=== PATIENT | male | born 2000 | race Caucasian/White ===

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

== ENCOUNTER 2021-01-06 01:52 | Inpatient (IN) ==
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
[2021-01-06 02:22] LABS: Appearance Urine Clear (Clear); Bilirubin Urine Negative (Negative); Blood Urine Negative (Negative); Color Urine Yellow; Glucose Urine UA Negative (Negative); Ketones Urine Negative (Negative); Leukocyte Esterase Urine Negative (Negative); Nitrite Urine Negative (Negative); Protein Urine Negative (Negative); Specific Gravity Urine 1.004 (1.000-1.030); Urobilinogen Urine Negative (Negative); pH Urine 6.5 (4.5-7.5)
[2021-01-06 02:30] LABS: Basophils # (auto) 0.03 K/uL (0-0.2); Basophils % (auto) 0.4 %; Eosinophils # (auto) 0.03 K/uL (0-0.5); Eosinophils % (auto) 0.4 %; Hematocrit (blood only) 44.2 % (42-52); Hemoglobin 16.1 g/dL (14.0-18.0); Immature Granulocytes # (auto) 0.03 K/uL (0.00-0.02); Immature Granulocytes % (auto) 0.4 %; Lymphocytes # (auto) 2.63 K/uL (1.2-3.4); Lymphocytes % (auto) 32.9 %; Mean Corpuscular Hemoglobin 31.5 pg (25-34); Mean Corpuscular Hgb Conc 36.4 g/dL (32-36); Mean Corpuscular Volume 86.5 fL (80-100); Mean Platelet Volume 9.1 fL (7.4-10.4); Monocytes # (auto) 0.57 K/uL (0.11-0.59); Monocytes % (auto) 7.1 %; Neutrophils % (auto) 58.8 %; Platelet Count 291 K/uL (130-400); RDW Coefficient of Variation 13.1 % (11.5-14.5); RDW Standard Deviation 41.7 fL (36.4-46.3); Red Blood Count 5.11 M/uL (4.7-6.1); White Blood Count 7.99 K/uL (4.8-10.8)
[2021-01-06 02:42] LABS: Amphetamines+Metham, Urine Neg (Neg); Barbiturates, Urine Neg (Neg); Benzodiazepine, Urine Neg (Neg); Cocaine, Urine Neg (Neg); MDMA (Ecstacy), Urine Neg (Neg); Methadone, Urine Neg (Neg); Opiate, Urine Neg (Neg); Phencyclidine, Urine Neg (Neg)
[2021-01-06 02:47] LABS: Albumin Level 4.2 gm/dl (3.4-5.0); BUN Creatinine Ratio 5.5 (10-20); Calcium 8.8 mg/dl (8.5-10.1); Creatinine Clr Calc Pharmacy 154.3 ml/min; Potassium 3.9 mmol/L (3.5-5.1)
[2021-01-06 02:53] LABS: Acetaminophen < 2 ug/ml (10-30); Salicylate < 1.7 mg/dl (2.8-20)
[2021-01-06 02:58] LABS: Albumin Globulin Ratio 1.1 (0.9-2); Bilirubin,Total 0.4 mg/dl (0.2-1); Globulin 3.7 gm/dl (2.5-4.0); Thyroid Stimulating Hormone 2.16 uIu/ml (0.300-4.500); Total Protein 7.9 gm/dl (6.4-8.2)
--- NOTE | 2021-01-06 07:53 | Emergency Department Note ---
ED Visit Note Patient reportedly had a significant other that broke up with the patient. Patient has been depressed with suicidal ideation and wants inpatient treatment. Patient was initially intoxicated but now clinically sober. Patient is pending [facility] evaluation. No active plan at this time. The patient is a voluntary 201. Patient was accepted to [facility]. The patient was admitted for voluntary inpatient psychiatric treatment. . : Alcohol intoxication Qualifiers: Complication of substance-induced condition: uncomplicated Qualified Code(s): F10.920 - Alcohol use, unspecified with intoxication, uncomplicated
[2021-01-06] MEDS ORDERED: hydrOXYzine HCl 25 MG TAB PO PRN ×2 (08:40)
[2021-01-06] MEDS ORDERED: NICOTINE POLACRILEX 2 MG GUM MT PRN (08:40)
[2021-01-06] MEDS ORDERED: MAGNESIUM HYDROXIDE SUSP 30 ML UDC PO PRN (08:40)
[2021-01-06] MEDS ORDERED: SODIUM CHLORIDE 0.65% NA SOLN 45 ML (OCEAN) PRN (08:40)
[2021-01-06] MEDS ORDERED: ALUMINUM/MAGNESIUM SUSP 30 ML UDC PO PRN (08:40)
[2021-01-06] MEDS ORDERED: BISMUTH SUBSALICYLATE LIQD 236 ML PO PRN (08:40)
[2021-01-06] MEDS ORDERED: ACETAMINOPHEN 325 MG TAB PO PRN (08:40)
[2021-01-06] MEDS ORDERED: buPROPion XL 150 MG TABCR PO SCH (14:15)
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
[2021-01-06] MEDS ORDERED: buPROPion XL 300 MG TABCR PO ONE (14:45)
[2021-01-06] MEDS: NICOTINE 14 MG/24 HR PATCH TD SCH (15:24)
[2021-01-06] MEDS: ARIPiprazole 15 MG TAB PO SCH (15:25)
[2021-01-06] MEDS: busPIRone 5 MG TAB PO SCH (20:18)
[2021-01-07] MEDS: NICOTINE 14 MG/24 HR PATCH TD SCH (09:08)
[2021-01-07] MEDS: ARIPiprazole 15 MG TAB PO SCH (09:09)
[2021-01-07] MEDS: buPROPion XL 300 MG TABCR PO SCH (09:10)
[2021-01-07] MEDS: busPIRone 5 MG TAB PO SCH ×3 (09:10→20:32)
--- NOTE | 2021-01-07 13:05 | Psychiatric Progress Note ---
Date of Service January 07, 2021 Impression / Recommendations Impression This is a 20-year-old male who presented with acute worsening of depression with suicidal ideation and plan to take father' medication. Patient is considered high risk as his brother by completed suicide in May and becomes disinhibited under the influence of ETOH. (1) Depression with suicidal ideation: 01/07/21--continue current medication and treatment plan as per Dr. Gonzalez (in italics). Risks/benefits/alternatives reviewed re: his current medications. Discussion included but was not limited to need for metabolic and TD monitoring with Abilify. He related he gets labs "every 3 months" and declines repeat fasting glu and cholesterol panel here. Will attempt to retrieve past labs for chart. Discussed FDA black box warnings for suicidality with antidepressants and mood stabilizers given his age <25. Reviewed risks fo serotonin syndrome given polypharmacy and higher end dosing of Buspar. He voiced good understanding of the discussion and denied side effects or hx of marleni. Reviewed disinhibiting effects of ETOh with his medication and he agrees to abstain from ETOH as although he doesn't have a regular intake problem, he can drink impulsively when triggered by upset, consistent with his personality do dx. The [facility] inpatient mental [facility] unit) on every 15 minute checks (behavioral with suicide precautions for safety. The patient will participate in group, recreational, and milieu therapies and will be offered additional individual and family sessions as clinically appropriate. 01/06/2021we will increase patient's Wellbutrin to 300 mg p.o. every morning starting tomorrow morning. We will continue his Abilify at 7.5 mg. We will continue his BuSpar for now, although an SSRI should be considered. Protective Factors Assessment Employed: Yes ([employer] (just started)) Interval History Identifying Information 20 yo male admit on 01/06 for SI, hx of BPD, voluntary hospitalization. Chief Complaint "I feel like 1 million percent better". Review of Systems Sleep Information Total Hours of Sleep: 8 Meal Information Percent Meal Consumed - Breakfast: 85 Percent Meal Consumed - Lunch: 100 Percent Meal Consumed - Dinner: 90 Subjective Subjective Patient was seen & assessed and interval progress reviewed with treatment team. Has since reconciled with trenton, mother of his 2 month old child. States that although he is benefiting form "a break" that he doesn't want to be here too much longer given separation from baby, her needing assistance, and plan to start a job later in the week (future focussed). States he is tolerating medication changes. Physical Exam Psychiatric Orientation: alert and oriented x 3 Apperance: appropriately dressed Eye Contact: good eye contact Motor Behavior: no abnormal motor movements Speech: normal rate/rhythm/volume of speech pleasant Mood: + depressed mood and + anxious mood Thought Process: linear/logical thought process Thought Content: reality based without delusions Suicidal Thoughts: denies suicidal thoughts and denies suicidal plan Homicidal Thoughts: denies homicidal thoughts Hallucinations: no auditory hallucinations and no visual hallucinations Cognition: recent memory grossly intact Estimated Intelligence: average estimated intelligence Insight: good insight Judgement: + fair judgement Vital Signs (Past 24 Hours) Last Vital Signs Temp 36.6 C 01/07/21 06:56 Pulse 99 H 01/07/21 06:56 Resp 18 01/07/21 06:56 BP 119/67 01/07/21 06:56 Pulse Ox 96 01/06/21 09:37 Results & Data ([facility]) Current Inpatient Medications Current Inpatient Medications: Current Inpatient Medications Acetaminophen (Acetaminophen 325 Mg Tab) 650 mg PO Q4H PRN PRN Reason: Headache or Minor Fever Stop: 02/05/21 08:39 Last Admin: 01/06/21 14:06 Dose: 650 mg Documented by: Al Hydrox/Mg Hydrox/Simethicone (Aluminum/Magnesium Susp 30 Ml Udc) 30 ml PO Q4H PRN PRN Reason: GI Upset Stop: 02/05/21 08:39 Aripiprazole (Aripiprazole 15 Mg Tab) 7.5 mg PO DAILY [facility] Stop: 02/05/21 14:14 Last Admin: 01/07/21 09:09 Dose: 7.5 mg Documented by: Bismuth Subsalicylate (Bismuth Subsalicylate Liqd 236 Ml) 15 ml PO PRN PRN PRN Reason: Loose Stool Stop: 02/05/21 08:39 Bupropion HCl (Bupropion Xl 300 Mg Tabcr) 300 mg PO QAM [facility] Stop: 02/06/21 08:59 Last Admin: 01/07/21 09:10 Dose: 300 mg Documented by: Buspirone HCl (Buspirone 5 Mg Tab) 20 mg PO TID [facility] Stop: 02/05/21 20:59 Last Admin: 01/07/21 09:10 Dose: 20 mg Documented by: Hydroxyzine HCl (Hydroxyzine Hcl 25 Mg Tab) 50 mg PO HSZ PRN PRN Reason: Insomnia Stop: 02/05/21 08:39 Hydroxyzine HCl (Hydroxyzine Hcl 25 Mg Tab) 25 mg PO Q4H PRN PRN Reason: Anxiety Stop: 02/05/21 08:39 Magnesium Hydroxide (Magnesium Hydroxide Susp 30 Ml Udc) 30 ml PO DAILY PRN PRN Reason: Constipation Stop: 02/05/21 08:39 Miscellaneous (Remove Nicoderm Patch) 1 ea N/A DAILY@0859 [facility] Stop: 02/05/21 08:58 Last Admin: 01/07/21 09:08 Dose: 1 ea Documented by: Nicotine (Nicotine 14 Mg/24 Hr Patch) 14 mg TD QAM [facility] Stop: 02/05/21 08:59 Last Admin: 01/07/21 09:08 Dose: 14 mg Documented by: Nicotine Polacrilex (Nicotine Polacrilex 2 Mg Gum) 1 piece MT PRN PRN PRN Reason: Nicotine Withdrawal Stop: 02/05/21 08:39 Sodium Chloride (Sodium Chloride 0.65% Na Soln 45 Ml ([place])) 1 - 2 sprays NA PRN PRN PRN Reason: Nasal Dryness/Congestion Stop: 02/05/21 08:39 Mental Health & Subst Abuse Tx Psychiatrist Name of Psychiatrist: [facility] [id number] [facility] [place] [id number] The[place] Name of Therapist: [facility] [place] Therapist's Therapy Appointment Comment: [id number] [facility] [place] [id number] Chainsaw Mechanic Name of Chainsaw Mechanic: None Post Discharge Appointments Primary Care Physician Name Of Family Doctor: None
[2021-01-08] MEDS: buPROPion XL 300 MG TABCR PO SCH (08:17)
[2021-01-08] MEDS: ARIPiprazole 15 MG TAB PO SCH (08:17)
[2021-01-08] MEDS: busPIRone 5 MG TAB PO SCH ×2 (08:18→14:12)
[2021-01-08] MEDS: NICOTINE 14 MG/24 HR PATCH TD SCH (08:21)
--- NOTE | 2021-01-08 11:46 | Discharge Summary ---
Date of Service January 08, 2021 History of Present Illness As per admitting psychiatrist Dr. Gonzalez: HPI as per psychiatric case management "Patient brought to ED by his father for mental health evaluation. Patient stated he has been drinking alcohol tonight and got into a fight with his fiance. Patient stated he is having thoughts of suicide with a plan. Patient stated he attempted suicide in the past. Patient reports inpatient treatment at [facility] 2 years ago. Family history of suicide - younger brother. Patient is seeking inpatient mental health treatment. Met with patient bedside to complete mental health evaluation. Patient stated he is diagnosed with Borderline Personality, depression, and anxiety. Patient stated he is prescribed medication by Dr. Walden at [facility] in [place]. Patient stated he takes his medication as prescribed. Patient stated he lives with his fiance and 2 month old daughter. Patient stated he has a 2 year old daughter to a previous relationship. Patient stated he got into a verbal argument with his fiance last night. Patient reports suicidal ideations with plan to get fathers pills and overdose on them. Patient denies previous suicide attempts. Patient stated he does see a therapist regularly. Patient stated he was inpatient at [facility] approx. 2 years ago. Patient denies HI or aggression. Patient denies SIB. Patient denies hallucinations, paranoia, or delusional thinking. Patient stated he feels sad most of the time and has increased anxiety recently. Patient denies medical issues. Patient stated he drinks alcohol approx. 1 time a week. Patient denies substance use. Patient denies any legal issues. Patient started a new job at [employer] recently and stated it is going well. Ferdinand is seeking inpatient mental health treatment." Upon evaluation this afternoon, patient endorses the above information is accurate. Patient states that his problems stem back from his childhood, where he grew up with a mother who suffered from bipolar disorder and was frequently hospitalized. Patient states that these troubles continued into adolescence due to bullying as well as poor self-esteem. Patient was in a relationship that was unsuccessful but he does have a 2 year daughter which he has visitation rights to. Additionally patient has a 2-month-old daughter with his fiance in 4 months. He cites stress in the home both financial and interpersonal as stressors which contributed to his current presentation. Patient endorses mood swings with chronic passive suicidal ideation, but is reporting that in the recent days his suicidal ideation has become more active with plans to overdose. Patient denies any hallucinations or paranoia or delusions. He does acknowledge alcohol and marijuana use which are excessive and were used as coping mechanisms. Patient stated that he had recently has been sober for approximately 2 months time. Patient endorses a mental health treatment history that stretches back to his childhood. He stated that he was put on medications for his behavior as a young child but is unsure as to what medications those were. He stated that as he grew into adolescence his problems turned towards more depression. He stated that he is currently taking Abilify, Wellbutrin, and BuSpar. He feels as if all these medications are helping him, but is most interested in increasing his Wellbutrin. Physical Exam Mental Examination See admission H&P and DOD summary. Vital Signs (Past 24 Hours) Last Vital Signs Temp 36.6 C 01/08/21 06:00 Pulse 93 H 01/08/21 06:31 Resp 16 01/08/21 06:00 BP 137/82 01/08/21 06:31 Pulse Ox 96 01/06/21 09:37 Principal Diagnosis major depressive disorder, recurrent, moderate Psychiatric Data See daily stay summary. In short, safety was maintained and the patient was cooperative with care. Medication changes included increase in Wellbutrin and they tolerated this well. A family session was held with his fiance prior to discharge and safety plan was completed prior to discharge. In addition, as suicidal plan included taking father's medication, treatment team confirmed that father aware/secured his meds and that patient has no access to guns at either residence. Father accidentally brought a rope to the unit with the patient's personal belongings and agreed it can be disposed of here. Day of Discharge Assessment Today the patient voices readiness for discharge. They note improvement in mood and deny thoughts to harm self or others. Thoughts remain organized and they are improved from admission. There is no evidence of psychosis. They agree to take mediations as prescribed and keep follow-up appointments. They voice understanding that Etoh may have a disinhibiting or combined effect with psychiatric medications and agree to abstain from Etoh. They are stable for discharge to outpatient level of care. Transition of Care Transition Of Care Record: was reviewed with the patient Advance Directives Advance Directives Information Provided: Yes Advance Directives: No Mental Health Advance Directive: No Living Will: No Power of Replanting Machine Crewman: No Advance Directives Reason:: Declines as Mental Health Visit. Risk Factors Assessment Male: Yes : Yes Do You Have Access To A Gun?: No Substance Use Disorders: No Previous Psychiatric Hospitalization: Yes Protective Factors Assessment Responsible for Young Children: Yes Employed: Yes ([employer] (just started)) Supportive Family: Yes Tobacco Cessation at Discharge Tobacco Cessation Medication Prescribed at Discharge: Offered & Pt Refused Total Time Total Time Spent: Greater Than 30 Minutes Total Time Includes: Examination of the patient, Discharge Planning and Medication Reconciliation Discharge Data Lab Results 01/06/21 01/06/21 01/06/21 02:03 02:03 02:19 WBC 7.99 RBC 5.11 Hgb 16.1 Hct 44.2 MCV 86.5 MCH 31.5 MCHC 36.4 H RDW Std Deviation 41.7 RDW Coeff of Maurisio 13.1 Plt Count 291 MPV 9.1 Immature Gran % (Auto) 0.4 Neut % (Auto) 58.8 Lymph % (Auto) 32.9 [place] % (Auto) 7.1 Eos % (Auto) 0.4 Baso % (Auto) 0.4 Neut # (Auto) 4.70 Lymph # (Auto) 2.63 [place] # (Auto) 0.57 Eos # (Auto) 0.03 Baso # (Auto) 0.03 Immature Gran # (Auto) 0.03 H Sodium Potassium Chloride Carbon Dioxide Anion Gap BUN Creatinine Est Cr Clr Drug Dosing Est GFR ( Amer) Est GFR (Non-Af Amer) BUN/Creatinine Ratio Glucose Calcium Total Bilirubin AST ALT Alkaline Phosphatase Total Protein Albumin Globulin Albumin/Globulin Ratio TSH Urine Color Yellow Urine Appearance Clear Urine pH 6.5 Ur Specific [place] 1.004 Urine Protein Negative Urine Glucose (UA) Negative Urine Ketones Negative Urine Blood Negative Urine Nitrite Negative Urine Bilirubin Negative Urine Urobilinogen Negative Ur Leukocyte Esterase Negative Salicylates Urine Opiates Screen Neg Ur Methadone, Qual Neg Acetaminophen Urine Barbiturates Neg Ur Phencyclidine (PCP) Neg U Amphetamin/Meth Scrn Neg MDMA (Ecstasy) Screen Neg U Benzodiazepines Scrn Neg Ur Cocaine Metabolite Neg U Marijuana (THC) Screen Neg Ethyl Alcohol mg/dL COVID-19 Eval Order SARS-CoV-2 (PCR) 01/06/21 01/06/21 01/06/21 02:19 02:19 02:19 WBC RBC Hgb Hct MCV MCH MCHC RDW Std Deviation RDW Coeff of Maurisio Plt Count MPV Immature Gran % (Auto) Neut % (Auto) Lymph % (Auto) [place] % (Auto) Eos % (Auto) Baso % (Auto) Neut # (Auto) Lymph # (Auto) [place] # (Auto) Eos # (Auto) Baso # (Auto) Immature Gran # (Auto) Sodium 142 Potassium 3.9 Chloride 111 H Carbon Dioxide 27 Anion Gap 4.0 BUN 6 L Creatinine 1.05 Est Cr Clr Drug Dosing 154.3 Est GFR ( Amer) 117.0 Est GFR (Non-Af Amer) 101.0 BUN/Creatinine Ratio 5.5 L Glucose 116 H Calcium 8.8 Total Bilirubin 0.4 AST 35 ALT 60 Alkaline Phosphatase 81 Total Protein 7.9 Albumin 4.2 Globulin 3.7 Albumin/Globulin Ratio 1.1 TSH 2.160 Urine Color Urine Appearance Urine pH Ur Specific [place] Urine Protein Urine Glucose (UA) Urine Ketones Urine Blood Urine Nitrite Urine Bilirubin Urine Urobilinogen Ur Leukocyte Esterase Salicylates < 1.7 L Urine Opiates Screen Ur Methadone, Qual Acetaminophen < 2 L Urine Barbiturates Ur Phencyclidine (PCP) U Amphetamin/Meth Scrn MDMA (Ecstasy) Screen U Benzodiazepines Scrn Ur Cocaine Metabolite U Marijuana (THC) Screen Ethyl Alcohol mg/dL 146.0 H COVID-19 Eval Order SARS-CoV-2 (PCR) 01/06/21 01/06/21 05:58 05:58 WBC RBC Hgb Hct MCV MCH MCHC RDW Std Deviation RDW Coeff of Maurisio Plt Count MPV Immature Gran % (Auto) Neut % (Auto) Lymph % (Auto) [place] % (Auto) Eos % (Auto) Baso % (Auto) Neut # (Auto) Lymph # (Auto) [place] # (Auto) Eos # (Auto) Baso # (Auto) Immature Gran # (Auto) Sodium Potassium Chloride Carbon Dioxide Anion Gap BUN Creatinine Est Cr Clr Drug Dosing Est GFR ( Amer) Est GFR (Non-Af Amer) BUN/Creatinine Ratio Glucose Calcium Total Bilirubin AST ALT Alkaline Phosphatase Total Protein Albumin Globulin Albumin/Globulin Ratio TSH Urine Color Urine Appearance Urine pH Ur Specific [place] Urine Protein Urine Glucose (UA) Urine Ketones Urine Blood Urine Nitrite Urine Bilirubin Urine Urobilinogen Ur Leukocyte Esterase Salicylates Urine Opiates Screen Ur Methadone, Qual Acetaminophen Urine Barbiturates Ur Phencyclidine (PCP) U Amphetamin/Meth Scrn MDMA (Ecstasy) Screen U Benzodiazepines Scrn Ur Cocaine Metabolite U Marijuana (THC) Screen Ethyl Alcohol mg/dL COVID-19 Eval Order Covid19 at [facility] SARS-CoV-2 (PCR) NEGATIVE Hospital Course (1) Depression with suicidal ideation: 01/07/21--continue current medication and treatment plan as per Dr. Gonzalez (in italics). Risks/benefits/alternatives reviewed re: his current medications. Discussion included but was not limited to need for metabolic and TD monitoring with Abilify. He related he gets labs "every 3 months" and declines repeat fasting glu and cholesterol panel here. Will attempt to retrieve past labs for chart. Discussed FDA black box warnings for suicidality with antidepressants and mood stabilizers given his age <25. Reviewed risks fo serotonin syndrome given polypharmacy and higher end dosing of Buspar. He voiced good understanding of the discussion and denied side effects or hx of marleni. Reviewed disinhibiting effects of ETOh with his medication and he agrees to abstain from ETOH as although he doesn't have a regular intake problem, he can drink impulsively when triggered by upset, consistent with his personality do dx. The patient was [facility]) on every 15 minute checks (behavioral with suicide precautions for safety. The patient will participate in group, recreational, and milieu therapies and will be offered additional individual and family sessions as clinically appropriate. 01/06/2021we will increase patient's Wellbutrin to 300 mg p.o. every morning starting tomorrow morning. We will continue his Abilify at 7.5 mg. We will continue his BuSpar for now, although an SSRI should be considered. Mental Health & Subst Abuse Tx Psychiatrist Name of Psychiatrist: [facility] - Dr. Walden Psychiatrist's Date of Appointment with Psychiatrist: 01/17/21 Time of Appointment with Psychiatrist: 9:10 a.m. Psychiatric Appointment Comment: [address] [facility], [place] [address] Therapist Name of Therapist: [facility] Edward Iyer Therapist's Date of Therapist Appointment: 01/09/21 Time of Therapist Appointment: 9:00 a.m. Therapy Appointment Comment: Telehealth - video - link to email Rn Transplant Name of Rn Transplant: . Post Discharge Appointments Primary Care Physician Name Of Family Doctor: None Smoking Cessation Counseling Tobacco Cessation Medication Prescribed at Discharge: Offered & Pt Refused Contact Information Discharge Discharge Address: [address] [place] [address] Discharge Plan Discharge Items Patient Disposition: Home - Self-Care Reason For Visit: DEPRESSION,ANXIETY Discharge Diagnosis: major depressive disorder Activity: Resume your previous activity Non-emergency contact: Primary Care Provider, Psychiatrist and Therapist Call non-emergency contact if: you have any medication questions and your sy mptoms worsen Follow-up/Referrals: PCP,NO [Primary Care Provider] - Diet: Regular Addtl Attending Provider Instructions: SPECIAL CARE INSTRUCTIONS: 1. Follow through with your scheduled aftercare appointments. If unable to keep an appointment, please call to reschedule. 2. Take your medication only as prescribed. Medication should not be changed or stopped without the approval of your doctor. In the event of worsening symptoms or concerns about side effects, contact your doctor immediately. 3. Utilize new healthy coping skills, anger management skills, and stress management skills learned during your hospitalization. Journal feelings and process them with a support person. Identify stressors or situations that may result in relapse, deterioration or inappropriate behaviors and develop a plan to deal with those issues. 4. If your coping skills are ineffective and you are in crisis, contact your outpatient providers for direction. If unable to reach your providers, please call the [facility] CRISIS LINE AT , go to the [facility] walk-in center at [address] [place] [address], [facility] [[email or web address]] A, [place], or go to the closest Emergency Room. 5. Avoid alcohol and un-prescribed drugs. 6. You have been provided with the Mental Health Advance Directives Pamphlet for your review. 7. Your condition is stable for discharge to outpatient level of care, but recovery is an ongoing process. Ifthoughts to harm yourself or others return, follow the safety plan developed during your stay. Planning for a safe return home includes securing weapons. Our treatment team recommends weaponsbe removed from the home until your outpatient provider reassesses your progress. In rare cases where the items themselvescannot be removed, guns and ammunitionshould be secured separatelyand keys stored by a reliable personoutside of the home. If you were admitted on an involuntary commitment, the police or other legal authorities may be involved in this process. AFTERCARE APPOINTMENTS: * Please call your insurance company prior to your scheduled appointment to confirm your aftercare providers are covered. Take your insurance information to your appointments. WHO TO CALL AND WHEN: Medical Emergencies: For questions or emergencies related to your hospital stay, please contact the Inpatient Behavioral Health Unit at [phone]. A social worker psychiatric is on-call 01/12 for the Behavioral Health Unit for emergencies At any time you feel your situation is an emergency, you may also call 911 immediately. Pending Studies at Discharge: No Stand-Alone Forms: My [facility], Smoking Cessation Medications and DC Order Prescriptions: New bupropion HCl 300 mg Tablet Extended Release 24 Hr 300 mg PO QAM Qty: 30 RF: 0 Continued aripiprazole 15 mg tablet 7.5 mg PO DAILY RF: 0 buspirone 10 mg tablet 20 mg PO TID RF: 0 Discontinued trazodone 50 mg tablet 25 - 50 mg PO HS RF: 0 hydroxyzine pamoate 25 mg capsule 25 - 50 mg PO Q6 PRN (Reason: anxiety/insomnia) RF: 0 bupropion HCl 150 mg tablet extended release 24 hr 150 mg PO QAM RF: 0 Discharge Orders: Discharge Order (Routine); Ordered 01/08/21 Ordered By: Carmel Chappell Admission Data Admit Date/Time: 01/06/21 08:40 Attending Provider: Carmel Chappell Admit Provider: Murphy Gonzalez Primary Care Provider: PCPELIZABETH Coding Level of Care Code 97865 D/C day mgmt > 30 min Diagnoses Depression with suicidal ideation F32.9; R45.851
== END 2021-01-08 15:20 | disposition home or self-care (01) | DRG 881 ==
LOC: ED 01:52 → 3S 08:40 → SUATTDRO 08:40 → 3S 09:39
DX: F17.290 Nicotine dependence, other tobacco product, uncomplicated; F17.210 Nicotine dependence, cigarettes, uncomplicated; Z79.899 Other long term (current) drug therapy; Z82.49 Family history of ischemic heart disease and other diseases of the circulatory system; R45.851 Suicidal ideations; F60.3 Borderline personality disorder; F41.9 Anxiety disorder, unspecified; F32.9 Major depressive disorder, single episode, unspecified; Z81.8 Family history of other mental and behavioral disorders; F10.129 Alcohol abuse with intoxication, unspecified